=== PATIENT | male | born 1980 | race Caucasian/White ===

== ENCOUNTER 2025-06-12 12:56 | Outpatient (CLI) | payer OTHER, SELFPAY ==
--- NOTE | 2025-06-12 12:45 | RT.EKG_ITS ---
APPROVED REPORT Exam: Resting ECG Reason for Exam: Pre-op Patient Location: O HR:91 bpm ECG Measurements Heart Rate 91 AXIS MO 153 P -6 QRSd 102 QRS -15 QT 370 T 41 QTc 456 Conclusion Low atrial rhythm Otherwise normal
== END 2025-06-12 12:57 | disposition home or self-care (01) ==
LOC: DI.CM 12:57
PROVIDERS: PCP Nurse Practitioner Family; Visit Provider Nurse Practitioner Family
DX: Z71.89 Other specified counseling (principal)
CPT/HCPCS: 93010

== ENCOUNTER 2025-06-12 13:34 | Outpatient (CLI) | payer OTHER, SELFPAY ==
[2025-06-12 12:49] LABS: Abs Immature Grans 0.03 10^3/uL (0.0-0.06); HCT 48.0 % (40.0-50.0); HGB 16.3 g/dL (13.5-17.5); Immature Grans % 0.3 %; MCH 28.8 pg (27.0-33.0); MCHC 34.0 % (32.0-36.0); MCV 85 fL (80-95); MPV 9.3 fL (8.0-11.0); Platelet Count 228 10^3/uL (130-400); RBC 5.65 10^6/uL (4.36-5.78); RDW 12.8 % (11.8-14.1); RDW-SD 39.4 fL; WBC 9.65 10^3/uL (4.4-10.8)
[2025-06-12 12:59] LABS: Glucose Negative (Negative)
[2025-06-12 12:59] LABS: Hemoglobin A1C 5.2 % (<5.7)
[2025-06-12 13:07] LABS: C & S Indicated? No; RBC 0-2 HPF (0-2); WBC Negative HPF (0-5)
[2025-06-12 13:22] LABS: INR 1.0 (0.9-1.1); PTT Activated 25.5 sec (20.6-30.2); Prothrombin Time 10.4 sec (9.1-11.1)
[2025-06-12 13:37] LABS: Calculated LDL 112 mg/dL (<100); Cholesterol 171 mg/dL (<200); HDL Cholesterol 33 mg/dL (>or=40); TSH (W/Ref FT4) 2.46 uIU/mL (0.36-3.74); Triglyceride 132 mg/dL (<150)
[2025-06-12 13:42] LABS: ALT 36 U/L (16-63); AST 22 U/L (15-37); Albumin 3.9 g/dL (3.4-5.0); Alkaline Phosphatase 70 U/L (46-116); Anion Gap 9.2 mmol/L (3-11); BUN 10 mg/dL (7-18); Bilirubin, Total 0.9 mg/dL (0.2-1.0); CO2 29.8 mmol/L (21.0-32.0); Calcium 9.0 mg/dL (8.5-10.1); Chloride 101 mmol/L (98-107); Estimated GFR 84.37 (mL/min/1.73m2); Glucose 93 mg/dL (74-106); Potassium 3.5 mmol/L (3.5-5.1); Sodium 140 mmol/L (136-145); Total Protein 8.2 g/dL (6.4-8.2)
[2025-06-12 22:23] LABS: PSA, Screening 0.3 ng/mL (<=2.5)
== END 2025-06-12 13:35 | disposition home or self-care (01) ==
LOC: LBO 13:36
PROVIDERS: PCP Nurse Practitioner Family; Visit Provider Nurse Practitioner Family
DX: E03.9 Hypothyroidism, unspecified (principal); Z13.220 Encounter for screening for lipoid disorders; Z13.1 Encounter for screening for diabetes mellitus; Z12.5 Encounter for screening for malignant neoplasm of prostate; M54.2 Cervicalgia; Z00.00 Encounter for general adult medical examination without abnormal findings; D17.9 Benign lipomatous neoplasm, unspecified
CPT/HCPCS: 36415; 80053; 80061; 80323; 84153; 81003; 81015; 83036; 84443; 85025; 85610; 85730

== ENCOUNTER 2025-06-12 13:53 | Outpatient (CLI) | payer OTHER, SELFPAY ==
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
== END 2025-06-12 14:13 ==
PROVIDERS: PCP Nurse Practitioner Family; Visit Provider Nurse Practitioner Family
DX: M54.2 Cervicalgia (principal)
CPT/HCPCS: 71046

== ENCOUNTER → 2025-08-04 02:01 | Outpatient (CLI) | payer OTHER, SELFPAY ==
--- NOTE | 2025-08-04 | DI.RAD_ITS ---
Exam(s) XR CERVICAL SP GARNICA TRAUMA 2-3V EXAM: XR CERVICAL SP GARNICA TRAUMA 2-3V CLINICAL HISTORY: Cervical spine fusion Z98.1. TECHNIQUE: 2D digital imaging was performed. Three views. COMPARISON: No exams were available for comparison FINDINGS: BONES: No fracture or destructive lesion. Vertebral bodies are unremarkable. Anterior cervical fusion hardware extending from C4 through C7 disc spacers. DISKS: Intervertebral disc spaces are maintained. ALIGNMENT: Straightening of the normal lower cervical lordosis in region of fusion. The odontoid and atlantoaxial articulations are normal. SOFT TISSUE: Normal. The lung apices are clear. IMPRESSION: Status post cervical fusion from C4 through C7. DATA REPOSITORY: RADIATION DOSE DELIVERED:
== END ==
PROVIDERS: PCP Nurse Practitioner Family; Visit Provider Neurological Surgery
DX: Z98.1 Arthrodesis status (principal)
CPT/HCPCS: 72040

== ENCOUNTER → 2025-08-20 01:18 | Outpatient (CLI) | payer OTHER, SELFPAY ==
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
== END ==
PROVIDERS: PCP Nurse Practitioner Family; Visit Provider Nurse Practitioner Family
DX: Z98.1 Arthrodesis status (principal); M54.2 Cervicalgia
CPT/HCPCS: 72040

== ENCOUNTER → 2025-09-02 00:18 | Outpatient (CLI) | payer OTHER, SELFPAY ==
--- NOTE | 2025-09-02 07:00 | DI.MRI_ITS ---
Exam(s) MR CHEST WO/W EXAM: MR CHEST WO/W CLINICAL HISTORY: rapid SUBCUTANEOUS growth of back mass,R22.2 TECHNIQUE: Multiplanar multisequence MRI of the upper back was performed. CONTRAST MATERIAL: IV Contrast: 20 ML of Dotarem contrast administered. COMPARISON: MR MRI, CERVICAL SPINE S/ CONTRAST from 04/29/2025 CR XR CERVICAL SP GARNICA TRAUMA 2-3V from 08/20/2025 FINDINGS: There is no evidence of a soft tissue mass in the upper back.The musculature shows normal signal and size.There is abundant subcutaneous fat but no encapsulated fat is seen to suggest a lipoma.There is an anterior cervical fusion from C4 through C7 noted. Marrow signals within normal limits. IMPRESSION: There is no evidence of a subcutaneous mass or lipoma. No abnormal enhancement is seen. DATA REPOSITORY:
[2025-09-02] MEDS: Gadoterate meglumine 20 ML SYRINGE IJ (09:42)
[2025-09-02] MEDS: Normal Saline Flush 10 ML SYR IVP (09:43)
== END ==
LOC: DI 00:18
PROVIDERS: PCP Nurse Practitioner Family; Visit Provider Surgery
DX: R22.2 Localized swelling, mass and lump, trunk (principal)
CPT/HCPCS: 71552